=== PATIENT | female | born 1995 | race Two or more races ===

== ENCOUNTER 2021-12-25 13:41 | Emergency (ER) | payer MEDICAID ==
[~2021-12-25] VITALS: Ht 157.5 cm; Wt 71.7 kg
[2021-12-25 15:06] VITALS: BP 101/51
[2021-12-25 15:53] LABS: Urine Bacteria NONE SEEN /hpf (None Seen); Urine Blood Negative /uL (Negative); Urine Mucus FEW (None Seen); Urine Specific Gravity 1.022 (1.001-1.035); Urine WBC 1 /hpf (0 - 5)
== END 2021-12-25 17:14 | disposition home or self-care (01) ==
LOC: ER 13:41
DX: O26.891 Other specified pregnancy related conditions, first trimester (principal); R10.2 Pelvic and perineal pain; Z3A.08 8 weeks gestation of pregnancy
CPT/HCPCS: 76801; 81001; 81025